=== PATIENT | female | born 1955 | race Caucasian/White ===

== ENCOUNTER → 2017-11-15 | Outpatient (CLI) | payer OTHER ==
[~2017-11-15] MED LIST: LEVSOD125 PO; Ventolin/Prove6.7 GM INH
== END ==
LOC: LAB EV 16:00
DX: N39.0 Urinary tract infection, site not specified (principal)
CPT/HCPCS: 87086

== ENCOUNTER 2018-04-02 00:13 | Day surgery (SDC) | payer OTHER | END 2018-04-02 08:29 | disposition home or self-care (01) | LOC: ATC 00:13 | DX: E27.40 Unspecified adrenocortical insufficiency (principal); R05 Cough; J84.89 Other specified interstitial pulmonary diseases | CPT/HCPCS: 36415; 80400; 82533; 96372; J0834 ==